=== PATIENT | female | born 1965 | race Caucasian/White ===

== ENCOUNTER 2017-03-23 18:39 | Emergency (ER) | payer BC ==
[~2017-03-23] VITALS: Ht 162.6 cm; Wt 81.6 kg
[~2017-03-23 18:39] MED LIST: ASPIRIN PO; ATENOLOL PO; KEFLEX PO; LODINE PO; NORCO 5/325 TAB1 TAB PO; [UNRECOGNIZED DRUG - OTHER]
== END 2017-03-23 20:30 | disposition home or self-care (01) ==
LOC: CED 18:39 → CFTX 18:39
DX: J01.00 Acute maxillary sinusitis, unspecified (principal); I10 Essential (primary) hypertension; Z87.01 Personal history of pneumonia (recurrent); Z88.5 Allergy status to narcotic agent; Z88.6 Allergy status to analgesic agent
CPT/HCPCS: 87651; 96372; 99283; J1885